=== PATIENT | male | born 1985 | race Caucasian/White ===

== ENCOUNTER 2016-11-29 18:10 | Emergency (ER) | payer SELFPAY ==
[~2016-11-29] VITALS: Ht 172.7 cm; Wt 88.9 kg
[~2016-11-29 18:10] MED LIST: AZITHROMYCIN250 MG1 PO; DEPAKOTE500 MG PO; IBUPROFEN600 MG; IBUPROFEN800 MG PO; LITHIUM CARBON300 M1 PO; METHOCARBAMOL500 MG; ULTRAM50 MG PO; ZANTAC150 MG PO; ZOFRAN4 MG PO
[2016-11-29] MEDS ORDERED: BENADRYL50 MG PO (19:34)
[2016-11-29] MEDS ORDERED: KENALOG,ARISTOC80 G1 TP (19:34)
[2016-11-29 19:58] VITALS: BP 130/85
== END 2016-11-29 20:05 | disposition home or self-care (01) ==
LOC: EME 18:10
DX: L30.9 Dermatitis, unspecified (principal); Z86.14 Personal history of Methicillin resistant Staphylococcus aureus infection
CPT/HCPCS: 99281; 99284

== ENCOUNTER 2017-11-21 19:27 | Emergency (ER) | payer SELFPAY ==
[~2017-11-21] VITALS: Ht 172.7 cm; Wt 89.9 kg
[~2017-11-21 19:27] MED LIST changes: +BENADRYL50 MG PO; +KENALOG,ARISTOC80 G1 TP
[2017-11-21 21:59] LABS: HEMOGLOBIN 15.6 G/DL (12.5-16.6); MCH 32.5 PG (29.0-34.0); MCHC 35.5 G/DL (30.0-36.0); MCV 91.7 FL (86-99); PLATELET COUNT 208 K/uL (156-360); RBC DIS.WIDTH-CV 12.9 % (11.8-14.6); RBC DIS.WIDTH-SD 43.1 % (39-53)
[2017-11-21 22:11] LABS: ALBUMIN 4.7 g/dL (3.2-4.8); CHLORIDE 104 mEq/L (99-109); POTASSIUM 4.7 mEq/L (3.7-5.4); SODIUM 139 mEq/L (136-147)
[2017-11-21 22:14] LABS: GLUCOSE 119 mg/dL (70-99); TOTAL PROTEIN 7.8 g/dL (6.4-8.3)
[2017-11-21 22:15] LABS: TOTAL BILIRUBIN 1.8 mg/dL (0.0-1.0)
[2017-11-21 22:17] LABS: ALKALINE PHOSPHATASE 81 IU/L (3-129); CREATININE 1.1 mg/dL (0.6-1.3); GFR ESTIMATE (CALCULATED) > 59 mL/min/ (58.99-99999)
[2017-11-21 22:18] LABS: UREA NITROGEN (BUN) 19 mg/dL (9-23)
[2017-11-21 22:19] LABS: AST (GOT) 26 IU/L (2-34)
[2017-11-21 22:20] LABS: ALT (GPT) 37 IU/L (3-49)
[2017-11-21 22:21] LABS: LIPASE 56 U/L (1.0-51.0)
[2017-11-21 23:24] LABS: APPEARANCE CLEAR ((CLEAR)); BILIRUBIN NEGATIVE; BLOOD NEGATIVE; COLOR YELLOW ((YELLOW)); GLUCOSE (STRIP) NEGATIVE; KETONES NEGATIVE; LEUKOCYTES NEGATIVE; NITRITE NEGATIVE; PROTEIN (STRIP) 30; SPECIFIC GRAVITY 1.027 (1.000-1.030); UCUL ADDED? NO; UROBILINOGEN 0.2 MG/DL (0.2-1.0)
[2017-11-22] MEDS ORDERED: ZOFRAN ODT4 MG PO (00:10)
[2017-11-22 00:36] VITALS: BP 120/78
== END 2017-11-22 00:36 | disposition home or self-care (01) ==
LOC: EME 19:27 → EXP 19:27
PROVIDERS: Physician Assistant Medical
DX: R11.2 Nausea with vomiting, unspecified (principal); R55 Syncope and collapse; R10.9 Unspecified abdominal pain; R19.7 Diarrhea, unspecified; M54.6 Pain in thoracic spine
CPT/HCPCS: 80053; 81003; 83690; 85027; 93005; 99281; 99284; J1885; J2405; J7030

== ENCOUNTER 2018-05-04 00:18 | Emergency (ER) | payer SELFPAY ==
[~2018-05-04] VITALS: Ht 172.7 cm; Wt 90.7 kg
[~2018-05-04 00:18] MED LIST changes: +ZOFRAN ODT4 MG PO
[2018-05-04 00:56] LABS: HEMATOCRIT 42.7 % (38.0-50.0); HEMOGLOBIN 15.3 G/DL (12.5-16.6); MCH 32.5 PG (29.0-34.0); MCHC 35.8 G/DL (30.0-36.0); MCV 90.7 FL (86-99); PLATELET COUNT 233 K/uL (156-360); RBC DIS.WIDTH-SD 43.4 % (39-53); RED BLOOD COUNT 4.71 M/uL (4.00-5.50); WHITE BLOOD COUNT 11.7 K/uL (4.1-10.2)
[2018-05-04 01:15] LABS: CHLORIDE 103 mEq/L (99-109); POTASSIUM 3.7 mEq/L (3.7-5.4); SODIUM 138 mEq/L (136-147)
[2018-05-04 01:17] LABS: GLUCOSE 127 mg/dL (70-99)
[2018-05-04 01:18] LABS: TOTAL PROTEIN 8.4 g/dL (6.4-8.3)
[2018-05-04 01:19] LABS: TOTAL BILIRUBIN 1.8 mg/dL (0.0-1.0)
[2018-05-04 01:21] LABS: ALKALINE PHOSPHATASE 92 IU/L (3-129); CREATININE 1.4 mg/dL (0.6-1.3); GFR ESTIMATE (CALCULATED) > 59 mL/min/ (58.99-99999)
[2018-05-04 01:22] LABS: UREA NITROGEN (BUN) 16 mg/dL (9-23)
[2018-05-04 01:23] LABS: AST (GOT) 37 IU/L (2-34)
[2018-05-04 01:24] LABS: ALT (GPT) 48 IU/L (3-49); LIPASE 82 U/L (1.0-51.0)
[2018-05-04 03:06] LABS: APPEARANCE CLOUDY ((CLEAR)); BILIRUBIN NEGATIVE; BLOOD SMALL; COLOR YELLOW ((YELLOW)); GLUCOSE (STRIP) NEGATIVE; KETONES 20; LEUKOCYTES NEGATIVE; NITRITE NEGATIVE; PROTEIN (STRIP) 100; SPECIFIC GRAVITY 1.024 (1.000-1.030)
[2018-05-04 03:18] LABS: BACTERIA NONE SEEN /HPF; EPITHELIAL CELLS RARE /HPF; MUCUS 2+ /LPF; RED BLOOD CELLS TNTC /HPF (0-5); UCUL ADDED? YES
[2018-05-04] MEDS ORDERED: CIPRO500 MG PO (03:23)
[2018-05-04] MEDS ORDERED: ZOFRAN ODT4 MG PO (03:23)
[2018-05-04] MEDS ORDERED: FLOMAX0.4 MG PO (03:23)
[2018-05-04] MEDS ORDERED: PERCOCET 5/31 TABLET PO (03:23)
[2018-05-04 03:32] VITALS: BP 127/71
== END 2018-05-04 03:33 | disposition home or self-care (01) ==
LOC: EME 00:18 → EXP 00:18
DX: N13.2 Hydronephrosis with renal and ureteral calculous obstruction (principal); R11.2 Nausea with vomiting, unspecified; Z87.442 Personal history of urinary calculi; Z88.0 Allergy status to penicillin
CPT/HCPCS: 74176; 80053; 81003; 83690; 85027; 87086; 99281; 99285; J1885; J2405; J3010; J7030